=== PATIENT | female | born 1955 | race Caucasian/White ===

== ENCOUNTER → 2017-08-10 | Outpatient (CLI) | payer BC ==
[~2017-08-10] MED LIST: CALCIUM1 CAP PO; CLARITIN PO; MULTIPLE VITAMI1 CAP PO
== END ==
LOC: MC.RAD 07:24
DX: Z12.31 Encounter for screening mammogram for malignant neoplasm of breast (principal); Q83.8 Other congenital malformations of breast

== ENCOUNTER → 2017-08-13 | Outpatient (CLI) | payer BC | LOC: MC.RAD 11:01 | DX: N63.11 Unspecified lump in the right breast, upper outer quadrant (principal) ==

== ENCOUNTER → 2017-08-14 | Outpatient (CLI) | payer BC | LOC: MC.RAD 07:10 | DX: N60.11 Diffuse cystic mastopathy of right breast (principal) ==

== ENCOUNTER → 2018-03-18 | Outpatient (CLI) | payer BC | LOC: MC.RAD 09:00 | DX: Z09 Encounter for follow-up examination after completed treatment for conditions other than malignant neoplasm (principal); N64.89 Other specified disorders of breast | CPT/HCPCS: G0279 ==

== ENCOUNTER → 2018-03-20 | Outpatient (CLI) | payer BC | LOC: MC.RAD 06:47 | DX: N63.10 Unspecified lump in the right breast, unspecified quadrant (principal); N64.89 Other specified disorders of breast; Z98.82 Breast implant status ==

== ENCOUNTER → 2019-08-19 | Outpatient (CLI) | payer MEDICARE, OTHER | LOC: MC.RAD 08:53 | DX: Z12.31 Encounter for screening mammogram for malignant neoplasm of breast (principal); Z87.898 Personal history of other specified conditions ==

== ENCOUNTER 2019-09-04 08:34 | Day surgery (SDC) | payer MEDICARE, OTHER ==
[~2019-09-04] VITALS: Ht 152.4 cm; Wt 70.0 kg
[2019-09-04 08:55] VITALS: BP 119/80; PULSE 76; TEMP 97.3
[2019-09-04] MEDS ORDERED: CLARITIN 1010 MG/TAB PO (09:27)
[2019-09-04] MEDS ORDERED: MUCINEX1200 MG PO (09:28)
[2019-09-04] MEDS ORDERED: ALEVE 220MG220 MG PO (09:29)
[2019-09-04] MEDS ORDERED: AFRIN 15 ML15 ML NS (09:30)
[2019-09-04] MEDS ORDERED: ALAWAY 10 ML10 ML OP (09:31)
[2019-09-04] MEDS ORDERED: SALINE 45 ML45 ML NS (09:32)
[2019-09-04] MEDS ORDERED: REFRESH OPTIVE0.4 M1 OP (09:32)
[2019-09-04 10:30] VITALS: BP 93/68; PULSE 69; TEMP 97.2
--- NOTE | 2019-09-04 10:30 | NUR ---
Patient brought back to [facility] room 5 via cart. Ambulated to chair with one assist. Alert and oriented. Placed on monitors, vital signs stable. Report recieved from Lisy YAN. Denies pain or nasuea. Requesting soda, does not wish to eat at this time. Warm blanket provided, call tubbs within reach. at bedside. Will continue to monitor.
[2019-09-04 10:45] VITALS: BP 99/60; PULSE 58
--- NOTE | 2019-09-04 10:45 | NUR ---
Patient states she is feeling well. Vital signs stable. Will continue to monitor.
[2019-09-04 11:00] VITALS: BP 103/63; PULSE 58
--- NOTE | 2019-09-04 11:00 | NUR ---
Patient states she feels ready to go home at this time. Stable. IV removed, intact. Discharge instructions and education packet reviewed with patient and . All questions answered. Patient to get dressed now.
--- NOTE | 2019-09-04 11:07 | NUR ---
Patient brought down to lobby via wheel chair. All belongings in hand. To be driven home by .
== END 2019-09-04 11:07 | disposition home or self-care (01) ==
LOC: SDCO 08:34
DX: Z12.11 Encounter for screening for malignant neoplasm of colon (principal); Z90.89 Acquired absence of other organs; Z88.0 Allergy status to penicillin
CPT/HCPCS: J2704; J3010; J7030

== ENCOUNTER → 2021-03-15 | Outpatient (CLI) | payer MEDICARE, OTHER ==
[~2021-03-15] MED LIST changes: +AFRIN 15 ML15 ML NS; +ALAWAY 10 ML10 ML OP; +ALEVE 220MG220 MG PO; +CLARITIN 1010 MG/TAB PO; +MUCINEX1200 MG PO; +REFRESH OPTIVE0.4 M1 OP; +SALINE 45 ML45 ML NS
== END ==
LOC: MC.RAD 08:21
DX: Z12.31 Encounter for screening mammogram for malignant neoplasm of breast (principal); Z80.3 Family history of malignant neoplasm of breast; Z87.898 Personal history of other specified conditions

== ENCOUNTER → 2023-03-21 | Outpatient (CLI) | payer MEDICARE, OTHER | LOC: MC.RAD 08:44 | DX: Z12.31 Encounter for screening mammogram for malignant neoplasm of breast (principal) ==